=== PATIENT | female | born 1975 | race Caucasian/White ===

== ENCOUNTER 2017-08-07 21:10 | Emergency (ER) | payer BC ==
[2017-08-07] MEDS ORDERED: FAMOTIDINE 20 MG/50 ML IVPB 50 ML IVPB ONE ×2 (21:50→22:16)
[2017-08-07] MEDS ORDERED: SODIUM CHLORIDE 1,000 ML IV ONE (21:50)
[2017-08-07] MEDS ORDERED: ACETAMINOPHEN 1000 MG/100 ML VIAL (NON FORMULARY) IVPB ONE (21:51)
--- NOTE | 2017-08-07 21:52 | PDOC ---
History of Present Illness - General Chief Complaint: Weakness Stated Complaint: WEAKNESS,NAUSEA,HEADACHE S/P COLONOSCOPY Time Seen by Provider: 08/07/17 21:15 History Source: Patient Exam Limitations: No Limitations - History of Present Illness Initial Comments: 08/07/17 22:31 This is a 42-year-old female who comes in complaining of epigastric pain weakness nausea and headache post-colonoscopy. Patient denies any vomiting or diarrhea since the colonoscopy. Here in the emergency room patient appears to be somewhat medicated with slurred speech and falling asleep during the interview. When patient wakes up she says she is in pain and keeps asking for narcotics for her pain. Patient had a colonoscopy at approximately 11:00 this morning and said she got home about 1:00 this afternoon. Since then patient said she has been having the pain and came in for evaluation. Patient denies any rectal bleeding or dark or tarry stools since the colonoscopy. Patient said that they told her she had some hemorrhoids but did not remove any polyps. Patient denies any fevers, chills, cough, chest pain. PAST MEDICAL HISTORY: no significant history PAST SURGICAL HISTORY: no significant history FAMILY HISTORY: no pertinant history SOCIAL HISTORY: Pt lives with family and is employed. MEDICATIONS: reviewed ALLERGIES: As per nursing notes Review of Systems General: No fevers or chills, no weakness, no weight loss HEENT: No change in vision. No sore throat,. No ear pain CardioVascular: No chest pain or shortness of breath Respiratory:No cough, or wheezing. Gastrointestinal: + nausea, vomitting, chronic diarrhea no constipation, No rectal bleeding Genitourinary: No dysuria, hematuria, or frequency Musculoskeletal: No joint or muscle pain or swelling Neurologic: + headache, vertigo, dizziness or loss of consciousness Psychiatric: nor depression Skin: No rashes or easy bruising Endocrine: no increased thirst or abnormal weight change Allergic: no skin or latex allergy All other systems reviewed and normal Exam: General: Well-nourished well-developed individual, no acute distress, patient appears overmedicated HEENT: Throat: Normal, tonsils normal, no erythema or exudate Neck: Supple, no meningeal signs, no lymphadenopathy Eyes::Pupils equal reactive and round, extraocular motion intact Chest: Nontender to palpation Cardiac: S1-S2 normal, regular rate and rhythm, no murmurs rubs or gallops Respiratory: Lungs clear to auscultation bilateral Abdomen: Soft, nondistended, normal bowel sounds, mildly tender to palpation epigastric, no guarding or rebound Extremities: Warm, dry, no cyanosis, clubbing, or edema Skin: No rashes Neuro: Alert and oriented x3, nonfocal exam, grossly intact, normal gait Psych: Normal mood and affect Assessment and plan: This is a 42-year-old female who comes in complaining of nausea and abdominal pain and feeling poorly after colonoscopy. Here in the emergency room patient appears to be overmedicated and continually is asking for narcotic pain medication. On review of patient's narcotic prescription registry patient did have a prescription for Percocet that was filled approximately 2 weeks ago. Because patient appeared to be overmedicated here in the emergency room I did not give her any opioids. I went in to reevaluate her on several occasions each time she was sleeping comfortably but arousable on arousing she complained of pain and requested opioid medication. Patient workup showed a normal white count and normal differential, there was no significant abnormalities of her chemistries. Patient was hydrated with a liter of fluid given some Pepcid and some IV Tylenol.. Patient was reassured that her symptoms would improve with time and that she should go home and get some rest and follow-up with her GI doctor in the morning. Past History - Past Medical History Allergies/Adverse Reactions: Allergies Allergy/AdvReac Type Severity Reaction Status Date / Time Penicillins Allergy Verified 08/07/17 21:12 Home Medications: Ambulatory Orders Ergocalciferol (Vitamin D2) [Vitamin D2] 50,000 units PO WEEKLY 07/22/16 Lisinopril/Hydrochlorothiazide [Lisinopril-Hctz 10-12.5 mg Tab] 1 each PO DAILY 07/22/16 Ondansetron [Zofran Odt -] 4 mg SL TID #21 od.tablet 07/22/16 Diabetes: Yes HTN: Yes - Suicide/Smoking/Psychosocial Hx Smoking History: Current some day smoker Have you smoked in the past 12 months: Yes Number of Cigarettes Smoked Daily: 1 'Breaking Loose' booklet given: 07/22/16 ED Treatment Course - LABORATORY CBC & Chemistry Diagram: 08/07/17 22:00 08/07/17 22:00 *DC/Admit/Observation/Transfer Diagnosis at time of Disposition: Abdominal pain Qualifiers: Abdominal location: epigastric Qualified Code(s): R10.13 - Epigastric pain - Discharge Dispostion Disposition: HOME Condition at time of disposition: Good Admit: No - Patient Instructions Additional Instructions: Go home, rest and all your GI doctor in the morning if you're not feeling better Continue any medications as previously prescribed by your physician. You should follow up with your primary doctor as soon as possible regarding today's emergency department visit. . Please make sure your doctor reviews the results of your emergency evaluation. Thank you for coming to the Emergency Department today for your care. It was a pleasure to see you today. Please note that your evaluation is INCOMPLETE until you follow-up with your doctor.
[2017-08-07] MEDS ORDERED: ACETAMINOPHEN INJECTION 100 ML IVPB ONE (22:16)
[2017-08-07 22:28] LABS: BASOPHIL 1.3 % (0-2.0); EOSINOPHIL 6.1 % (0-4.5); MCH 30.8 pg (25.7-33.7); MCHC 33.8 g/dl (32.0-36.0); MEAN CELL VOLUME 91.2 fl (80-96); NEUTROPHILS 61.1 % (42.8-82.8); PLATELET COUNT 203 K/MM3 (134-434); RDW 12.5 % (11.6-15.6); WHITE BLOOD COUNT 7.6 K/mm3 (4.0-10.8)
[2017-08-07 22:46] LABS: ALBUMIN 3.6 g/dl (3.5-5.0); ALK PHOS 90 U/L (32-92); ANION GAP 0 (8-16); BILIRUBIN,TOTAL 0.5 mg/dl (0.2-1.0); CALCIUM 8.5 mg/dl (8.4-10.2); CO2 25 mmol/L (22-28); CREATININE 0.6 mg/dl (0.6-1.3); GLUCOSE,RANDOM 81 mg/dl (74-106); SGOT/AST 22 U/L (10-42); SGPT/ALT 21 U/L (10-40); TOT PROT 6.2 g/dl (6.4-8.3)
[2017-08-08 00:11] VITALS: BP 123/87; PULSE 80; TEMP 98.8; BMI 31.6
== END 2017-08-07 23:40 | disposition home or self-care (01) ==
LOC: FER 21:10
PROC: 3E033NZ Introduction of Analgesics, Hypnotics, Sedatives into Peripheral Vein, Percutaneous Approach (ICD-10-PCS; principal; 2017-08-07)
PROC: 3E033GC Introduction of Other Therapeutic Substance into Peripheral Vein, Percutaneous Approach (ICD-10-PCS; 2017-08-07)
PROC: 3E0337Z Introduction of Electrolytic and Water Balance Substance into Peripheral Vein, Percutaneous Approach (ICD-10-PCS; 2017-08-07)
DX: R10.13 Epigastric pain (principal); F17.210 Nicotine dependence, cigarettes, uncomplicated; E11.9 Type 2 diabetes mellitus without complications; I10 Essential (primary) hypertension
CPT/HCPCS: 36415; 80053; 83690; 85025; 99283-25

== ENCOUNTER 2017-10-18 17:40 | Emergency (ER) | payer BC ==
[2017-10-18 17:52] VITALS: BP 119/79; PULSE 80; TEMP 99; BMI 31.1
[2017-10-18] MEDS ORDERED: SODIUM CHLORIDE 1,000 ML IV STA (17:54)
[2017-10-18] MEDS ORDERED: ACETAMINOPHEN 1000 MG/100 ML VIAL (NON FORMULARY) IVPB ONE (17:54)
[2017-10-18] MEDS ORDERED: METOCLOPRAMIDE HCL INJECTION 10 MG/2 ML VIAL IVPUSH ONE (17:54)
[2017-10-18] MEDS ORDERED: PROCHLORPERAZINE INJECTION 10 MG/2 ML VIAL IVPB ONE (18:08)
--- NOTE | 2017-10-18 18:18 | PDOC ---
History of Present Illness - General History Source: Patient Exam Limitations: No Limitations - History of Present Illness Initial Comments: 10/18/17 18:32 The patient is a 42-year-old female, with a significant past medical history of , who presents to the ED with 4 days of a migraine. Pt was prescribed imitrex; last dose was 3 days ago. Pt was unable to refill her prescription due to insurance issues. She is experiencing the pain to her temples bilaterally. Pt states that the pain is constant and is accompanied by eye puffiness, photophobia, loss of appetite, nausea, and vomiting. She denies any fever or chills. She denies having any other symptoms. Allergies: Penicillin (Pt develops hives). <Laura Blanco - Last Filed: 10/18/17 18:31> - General History Source: Patient Exam Limitations: No Limitations <Richardson Rdz - Last Filed: 10/18/17 18:51> <Alessandra Lee - Last Filed: 10/19/17 05:42> - General Chief Complaint: Headache Stated Complaint: HEADACHE Time Seen by Provider: 10/18/17 17:46 Past History <Laura Blanco - Last Filed: 10/18/17 18:31> - Past Medical History COPD: No Diabetes: Yes HTN: Yes Other medical history: MIGRAINE HEADACHES - Surgical History GI Surgery: Yes (GASTRIC BYPASS 09/2016) - Suicide/Smoking/Psychosocial Hx Smoking History: Current every day smoker Have you smoked in the past 12 months: Yes Number of Cigarettes Smoked Daily: 3 Information on smoking cessation initiated: Yes 'Breaking Loose' booklet given: 10/18/17 Hx Alcohol Use: No Drug/Substance Use Hx: No Substance Use Type: None <Rihcardson Rdz - Last Filed: 10/18/17 18:51> <Alessandra Lee - Last Filed: 10/19/17 05:42> - Past Medical History Allergies/Adverse Reactions: Allergies Allergy/AdvReac Type Severity Reaction Status Date / Time Penicillins Allergy Verified 10/18/17 17:45 metoclopramide HCl AdvReac hallucinati Verified 10/18/17 18:11 [From [facility]] ons Home Medications: Ambulatory Orders Ergocalciferol (Vitamin D2) [Vitamin D2] 50,000 units PO WEEKLY 07/22/16 Lisinopril/Hydrochlorothiazide [Lisinopril-Hctz 10-12.5 mg Tab] 1 each PO DAILY 07/22/16 Acetaminophen/Caffeine/Butalb [Fioricet -] 1 tab PO Q6H PRN #12 tablet MDD 3 tabs 10/18/17 Calcium Carbonate [Calcium] 500 mg PO ASDIR 10/18/17 Ferrous Sulfate, Dried [Iron] mg PO DAILY 10/18/17 Sumatriptan Succinate [Imitrex] 50 mg PO ASDIR 10/18/17 Review of Systems - Review of Systems Able to Perform ROS?: Yes Comments:: 10/18/17 18:32 GENERAL/CONSTITUTIONAL: (+)Loss of appetite. No fever or chills. No weakness. HEAD, EYES, EARS, NOSE AND THROAT: (+)Photophobia. No ear pain or discharge. No sore throat. CARDIOVASCULAR: No chest pain or shortness of breath. RESPIRATORY: No cough, wheezing, or hemoptysis. SKIN: No rash GASTROINTESTINAL: (+)nausea, vomiting. No diarrhea or constipation. GENITOURINARY: No dysuria, frequency, or change in urination. MUSCULOSKELETAL: No joint or muscle swelling or pain. No neck or back pain. NEUROLOGIC: (+)migraine. No vertigo, loss of consciousness, or change in strength/sensation. ENDOCRINE: No increased thirst. No abnormal weight change. HEMATOLOGIC/LYMPHATIC: No anemia, easy bleeding, or history of blood clots. ALLERGIC/IMMUNOLOGIC: No hives or skin allergy. <Laura Blanco - Last Filed: 10/18/17 18:31> *Physical Exam - Vital Signs Last Vital Signs Temp Pulse Resp BP Pulse Ox 99 F 80 16 119/79 100 10/18/17 17:40 10/18/17 17:40 10/18/17 17:40 10/18/17 17:40 10/18/17 17:40 - Physical Exam Comments: 10/18/17 18:41 GENERAL: Awake, alert, and fully oriented, in no acute distress HEAD: No signs of trauma ENT: Auricles normal inspection, hearing grossly normal, nares patent, oropharynx clear EYES: PERRLA, EOMI, sclera anicteric, conjunctiva clear without exudates. Moist mucosa. NECK: Normal ROM, supple, no lymphadenopathy, JVD, or masses LUNGS: Breath sounds equal, clear to auscultation bilaterally. No wheezes, and no crackles HEART: Regular rate and rhythm, normal S1 and S2, no murmurs, rubs or gallops ABDOMEN: Soft, nontender, normoactive bowel sounds. No guarding, no rebound. No masses EXTREMITIES: Normal range of motion, no edema. No clubbing or cyanosis. No cords, erythema, or tenderness NEUROLOGICAL: Cranial nerves II through XII intact. 5/5 strength. Sensation intact. No pronator drift. Speech normal. Gait normal. SKIN: Warm, Dry, normal turgor, no rashes or lesions noted <Laura Blanco - Last Filed: 10/18/17 18:31> - Vital Signs Last Vital Signs Temp Pulse Resp BP Pulse Ox 99 F 80 16 119/79 100 10/18/17 17:40 10/18/17 17:40 10/18/17 17:40 10/18/17 17:40 10/18/17 17:40 <Richardson Rdz - Last Filed: 10/18/17 18:51> - Vital Signs Last Vital Signs Temp Pulse Resp BP Pulse Ox 99 F 80 16 119/79 100 10/18/17 17:40 10/18/17 17:40 10/18/17 17:40 10/18/17 17:40 10/18/17 17:40 <Alessandra Lee - Last Filed: 10/19/17 05:42> ED Treatment Course - Medications Given in the ED: ED Medications Discontinued Medications Generic Name Dose Route Start Last Admin Trade Name Freq PRN Reason Stop Dose Admin Acetaminophen 1,000 mg 10/18/17 17:54 10/18/17 18:10 Ofirmev Injection - IVPB 10/18/17 17:55 1,000 mg ONCE ONE Administration Diphenhydramine HCl 25 mg 10/18/17 17:54 10/18/17 18:05 Benadryl Injection - IVPB 10/18/17 17:55 25 mg ONCE ONE Administration <Laura Blanco - Last Filed: 10/18/17 18:31> - Medications Given in the ED: ED Medications Discontinued Medications Generic Name Dose Route Start Last Admin Trade Name Freq PRN Reason Stop Dose Admin Acetaminophen 1,000 mg 10/18/17 17:54 10/18/17 18:10 Ofirmev Injection - IVPB 10/18/17 17:55 1,000 mg ONCE ONE Administration Diphenhydramine HCl 25 mg 10/18/17 17:54 10/18/17 18:05 Benadryl Injection - IVPB 10/18/17 17:55 25 mg ONCE ONE Administration <Richardson Rdz - Last Filed: 10/18/17 18:51> - Medications Given in the ED: ED Medications Discontinued Medications Generic Name Dose Route Start Last Admin Trade Name Aurelia PRN Reason Stop Dose Admin Acetaminophen 1,000 mg 10/18/17 17:54 10/18/17 18:10 Ofirmev Injection - IVPB 10/18/17 17:55 1,000 mg ONCE ONE Administration Acetaminophen/Butalbital/Caffeine 1 tablet 10/18/17 18:58 10/18/17 19:15 Fioricet - PO 10/18/17 18:59 1 tablet ONCE ONE Administration Diphenhydramine HCl 25 mg 10/18/17 17:54 10/18/17 18:05 Benadryl Injection - IVPB 10/18/17 17:55 25 mg ONCE ONE Administration Sodium Chloride 1,000 mls @ 1,000 mls/hr 10/18/17 17:54 10/18/17 18:00 Normal Saline - IV 10/18/17 18:53 1,000 mls/hr ASDIR STA Administration Metoclopramide HCl 10 mg 10/18/17 17:54 10/18/17 19:16 Reglan Injection - IVPUSH 10/18/17 17:55 Not Given ONCE ONE Prochlorperazine Edisylate 10 mg 10/18/17 18:08 10/18/17 18:50 Compazine Injection - IVPB 10/18/17 18:09 10 mg ONCE ONE Administration <Alessandra Lee - Last Filed: 10/19/17 05:42> Medical Decision Making - Medical Decision Making 10/18/17 18:12 A portion of this note was documented by scribe services under my direction. I have reviewed the details of the note, within reason, and agree with the documentation with the following case summary and management plan written by me. Patient treated in the ED. Nursing notes are reviewed and incorporated into the medical decision-making. Vital signs reviewed. Vital Signs Temp Pulse Resp BP Pulse Ox 99 F 80 16 119/79 100 10/18/17 17:40 10/18/17 17:40 10/18/17 17:40 10/18/17 17:40 10/18/17 17:40 42-year-old female with history of migraines presents emergency Department with a migraine attack. Patient reports a constant throbbing global headache for 4 days associated photophobia and phonophobia. Denies fevers or chills or neck pain. Patient reports that she is taking her Imitrex. However, she attempted to refill her Imitrex but the insurance rejected her refills. Patient's symptoms are consistent with her migraines. Patient reports that she has thought she may potentially have had an ALLERGIC reaction to Reglan. We'll trial other migraine medications and reassess. 10/18/17 18:51 [facility] Lee for further management and disposition. <Richardson Rdz - Last Filed: 10/18/17 18:51> - Medical Decision Making Patient feels no further headache after Fioricet. Patient discharged with prescription for Fioricet (#12) to be used up to 3 tabs a day as needed for headache. She has follow-up appointment with her neurologist next week. If she has any persistent severe headache in the interim , she should return to the emergency room. <Alessandra Lee - Last Filed: 10/19/17 05:42> *DC/Admit/Observation/Transfer - Attestations Scribe Attestion: 10/18/17 18:44 Documentation prepared by Laura Blanco, acting as medical chemist for Richardson Rdz MD. <Laura Blanco - Last Filed: 10/18/17 18:31> <Richardson Rdz - Last Filed: 10/18/17 18:51> <Alessandra Lee - Last Filed: 10/19/17 05:42> Diagnosis at time of Disposition: Migraine Qualifiers: Migraine type: unspecified Status migrainosus presence: without status migrainosus Intractability: not intractable Qualified Code(s): G43.909 - Migraine, unspecified, not intractable, without status migrainosus - Discharge Dispostion Disposition: HOME Condition at time of disposition: Stable - Prescriptions Prescriptions: Acetaminophen/Caffeine/Butalb [Fioricet -] 1 tab PO Q6H PRN #12 tablet MDD 3 tabs PRN Reason: Headache - Referrals Referrals: Julienne French MD [Primary Care Provider] - - Patient Instructions Printed Discharge Instructions: Migraine -- Adult Additional Instructions: Fioricet 1 tablet every 6 hours as needed for headache up to 3 times a day Rest; drink plenty fluids Follow-up with your neurologist within the next 5 days Return to ER if you have persistent severe headache - Post Discharge Activity
[2017-10-18] MEDS ORDERED: ACETAMINOPHEN/CAFFEINE/BUTALBITAL 1 TAB PO ONE (18:58)
[2017-10-18] MEDS ORDERED: ACETAMINOPHEN/CAFFEINE/BUTALBITAL 1 TAB ONE (19:14)
== END 2017-10-18 20:56 | disposition home or self-care (01) ==
LOC: FER 17:40
PROC: 3E033NZ Introduction of Analgesics, Hypnotics, Sedatives into Peripheral Vein, Percutaneous Approach (ICD-10-PCS; principal; 2017-10-18)
PROC: 3E033GC Introduction of Other Therapeutic Substance into Peripheral Vein, Percutaneous Approach (ICD-10-PCS; 2017-10-18)
PROC: 3E0337Z Introduction of Electrolytic and Water Balance Substance into Peripheral Vein, Percutaneous Approach (ICD-10-PCS; 2017-10-18)
DX: G43.909 Migraine, unspecified, not intractable, without status migrainosus (principal)
CPT/HCPCS: 99282-25

== ENCOUNTER 2018-06-05 15:59 | Emergency (ER) | payer BC ==
[2018-06-05 16:17] VITALS: TEMP 98.3; BMI 24.9
--- NOTE | 2018-06-05 16:40 | PDOC ---
History of Present Illness - General Chief Complaint: Migraine Headache Stated Complaint: MIGRAINE Time Seen by Provider: 06/05/18 16:39 - History of Present Illness Initial Comments: 06/05/18 16:49 43 yo F w a hx of anemia, PUD, Gastric bypass, HTN, and bradycardia is here with a left sided pounding pulsatile headache which she says feels like her typical migraine. She has had the migraine for the past week. She rates the pain as 10/10 and she came to the ER bc she couldn't bare the pain and wanted some meds for it. She endorses blurry vision, nausea but no emesis, photophobia , and phonophobia. She says this is not the worst headache of her life. She was taking immitrex months back but stopped bc of her HTN. She was also taking propranolol as a migraine prophylactic but stopped bc of her bradycardia. She is not allowed to take NSAIDs bc of her ulcer. She also gets a bad reaction to reglan. She denies any recent fevers or neck rigidity. Denies any weakness, or sensory changes. 06/05/18 16:50 Past History - Past Medical History Allergies/Adverse Reactions: Allergies Allergy/AdvReac Type Severity Reaction Status Date / Time Penicillins Allergy Intermediate Difficulty Verified 06/05/18 16:00 Breathing metoclopramide HCl AdvReac hallucinati Verified 06/05/18 16:00 [From Reglan] ons Home Medications: Ambulatory Orders Ergocalciferol (Vitamin D2) [Vitamin D2] 50,000 units PO WEEKLY 07/22/16 Calcium Carbonate [Calcium] 500 mg PO ASDIR 10/18/17 Cyclobenzaprine HCl 10 mg PO PRN #10 tablet 06/05/18 Lisinopril 10 mg PO DAILY 06/05/18 Pantoprazole Sodium [Protonix -] 20 mg PO BID 06/05/18 COPD: No Diabetes: No HTN: Yes Other medical history: ULCER - Surgical History GI Surgery: Yes (GASTRIC BYPASS 09/2016, BOWEL OBSTRUCTION) - Suicide/Smoking/Psychosocial Hx Smoking History: Current every day smoker Have you smoked in the past 12 months: Yes Number of Cigarettes Smoked Daily: 1 Information on smoking cessation initiated: Yes 'Breaking Loose' booklet given: 06/05/18 Hx Alcohol Use: No Drug/Substance Use Hx: No Substance Use Type: None Review of Systems - Review of Systems Comments:: 06/05/18 16:55 NEUROLOGIC: Positive: Headache Absent: focal weakness or paresthesias, dizziness, unsteady gait, seizure, mental status changes, bladder or bowel incontinence CONSTITUTIONAL: Positive: Generalized weakness, malaise. Absent: fever, chills, diaphoresis, loss of appetite HEENT: Absent: rhinorrhea, nasal congestion, throat pain, throat swelling, difficulty swallowing, mouth swelling, ear pain, eye pain, visual Changes CARDIOVASCULAR: Absent: chest pain, syncope, palpitations, irregular heart rate, lightheadedness , peripheral edema RESPIRATORY: Absent: cough, shortness of breath, dyspnea with exertion, orthopnea, wheezing, stridor, hemoptysis GASTROINTESTINAL: Positive: Nausea Absent: abdominal pain, abdominal distension, vomiting, diarrhea, constipation, melena, hematochezia GENITOURINARY: Absent: dysuria, frequency, urgency, hesitancy, hematuria, flank pain, genital pain MUSCULOSKELETAL: Positive: Myalgia Absent: arthralgia, joint swelling SKIN: Absent: rash, itching, pallor HEMATOLOGIC/IMMUNOLOGIC: Absent: easy bleeding, easy bruising, lymphadenopathy, frequent infections ENDOCRINE: Absent: unexplained weight gain, unexplained weight loss, heat intolerance, cold intolerance PSYCHIATRIC: Absent: anxiety, depression, suicidal or homicidal ideation, hallucinations. *Physical Exam - Vital Signs Last Vital Signs Temp Pulse Resp BP Pulse Ox 98.3 F 57 L 16 149/89 100 06/05/18 16:00 06/05/18 16:00 06/05/18 16:00 06/05/18 16:00 06/05/18 16:00 - Physical Exam Comments: 06/05/18 16:58 GENERAL: Patient is in distress bc of her headache. She is well developed, well nourished , awake and alert. HEENT: Normocephalic, atraumatic. PERRLA, EOMI. No conjunctival pallor. Sclera are non- icteric. Moist mucous membranes. Oropharynx is clear. NECK: Supple. Full ROM. No JVD. Carotid pulses 2+ and symmetric, without bruits. No lymphadenopathy. CARDIOVASCULAR: Regular rate and rhythm. No murmurs, rubs, or gallops. Distal pulses are 2+ and symmetric. PULMONARY: No evidence of respiratory distress. Lungs clear to auscultation bilaterally. No wheezing, rales or rhonchi. ABDOMINAL: Soft. Non-tender. Non-distended. No rebound or guarding. No organomegaly. Normoactive bowel sounds. MUSCULOSKELETAL Normal range of motion at all joints. No bony deformities or tenderness. No CVA tenderness. EXTREMITIES: No cyanosis. No clubbing. No edema. No calf tenderness. SKIN: Warm and dry. Normal capillary refill. No rashes. No jaundice. NEUROLOGICAL: Alert, awake, appropriate. Cranial nerves 2-12 intact. No deficits to light touch and temperature in face, upper extremities and lower extremities. No motor deficits in the in face, upper extremities and lower extremities. Normoreflexic in the upper and lower extremities. Normal speech. Gait is normal without ataxia. PSYCHIATRIC: Cooperative. Good eye contact. Appropriate mood and affect. Medical Decision Making - Medical Decision Making 06/05/18 16:59 43 yo F w a hx of migraines, PUD, gastric bypass, HTN, and bradycardia here bc of what appears to be a migraine which she has had for the past week. The pain has stayed the same but she has not taken meds for it bc she is not allowed to take NSAIDs bc of her ulcer, reglan bc she gets bad reactions, sumatriptan bc she has high BP, and propranolol bc she has bradycardia. She has not had any recent fevers or infections. Negative kernig and brudinsky. No nuchal rigidity. She denies this headache being the worst headache of her life and says the headache came on suddenly not abruptly. Plan: liter of saline, tylenol, prochlorperazine, benadryl, lidoderm patch, re- assess. Re-assessment: After migraine meds she feels better. 06/05/18 17:39 06/05/18 18:48 *DC/Admit/Observation/Transfer Diagnosis at time of Disposition: Migraine - Discharge Dispostion Disposition: HOME Condition at time of disposition: Stable Decision to Admit order: No - Prescriptions Prescriptions: Cyclobenzaprine HCl 10 mg PO PRN #10 tablet - Referrals - Patient Instructions Printed Discharge Instructions: DI for Moderate Sedation Additional Instructions: You came to the ER with a migraine headache. We gave you some medications to help soothe the Migraine. Please make sure to follow up with you primary care doc in the next 7 to 10 days to make sure the migraine has gone away and you are getting better. Come back to the Emergency room immediately if your headache gets much worse, you develop a bad fever, or other concerning symptoms arise. - Post Discharge Activity
[2018-06-05] MEDS ORDERED: ACETAMINOPHEN 1000 MG/100 ML VIAL (NON FORMULARY) IVPB ONE (16:41)
[2018-06-05] MEDS ORDERED: SODIUM CHLORIDE 0.9% 500 ML INFUS.BAG IV ONE (16:41)
[2018-06-05] MEDS ORDERED: PROCHLORPERAZINE INJECTION 10 MG/2 ML VIAL IVPB ONE (16:41)
[2018-06-05] MEDS ORDERED: diphenhydrAMINE HCL 25 MG CAPSULE (FP) PO ONE (16:42)
[2018-06-05] MEDS ORDERED: diphenhydrAMINE HCL 50 MG CAPSULE ONE (16:53)
[2018-06-05] MEDS ORDERED: ACETAMINOPHEN INJECTION 100 ML IVPB ONE (16:53)
[2018-06-05] MEDS ORDERED: PROCHLORPERAZINE INJECTION 10 MG/2 ML VIAL ONE (16:53)
[2018-06-05] MEDS ORDERED: LIDOCAINE 5% TOPICAL PATCH TP ONE (17:27)
--- NOTE | 2018-06-05 18:20 | PDOC ---
Attending Attestation - HPI HPI: 06/05/18 18:22 Rach 43 YOF with h/o htn, migraines and gastric bypass presenting with migraine headache x 1 week; saw PCP earlier today w/o intervention. She ranks her headache as a 10/10 yet, not the worst of her life. She reports associated photophobia, phonophobia, minimal blurred vision, nausea without emesis, and neck cervicalgia radiating down to her left shoulder. She denies any neck stiffness. Her headache is currently localized to the left occipital and temporal region. She has not taken anything for her migraine. She states her migraine is triggered by high stress. She was prescribed Sumatriptan and Propranolol in the past, however, stopped taking them due to ill side effects. She denies any recent fever, chills, or vomiting. She denies any recent chest pain or shortness of breath. She denies any recent urinary or bowel symptoms. ROS is positive for headache, photophobia, phonophobia, minimal blurred vision, and neck cervicalgia . Allergies: Penicillins, Metoclopramide HCl Past surgical history: Gastric bypass and tubal ligation. Social history: Nonsmoker. Denies EtOH use and recreational drug use. - Physicial Exam PE: 06/05/18 18:22 General: Well appearing, awake and alert, NAD. HEENT: NCAT, PERRL, EOMI, clear conjunctiva, anicteric, moist mucus membranes, clear oropharynx Neck: neck supple, FROM; +left trapezius and lateral cervical spine and occipital groove TTP, no midline tenderness; no meningeal signs Resp: CTAB, normal and even respirations, no respiratory distress CVS: RRR, 2+ peripheral pulses throughout, no peripheral edema Abdomen: soft, NTND Back: normal inspection and ROM; lateral left sided thoracic TTP, no midline tenderness MSK: no edema, RAINEY x4, ROM intact. normal bulk and tone. Neuro: alert, oriented appropriately; no focal neurologic deficits. SILT, 5/5 distal and prox strength in all extrem. CN II-XII intact. Gait stable. Skin: warm and well perfused, cap refill <2 sec, normal color; no rash <Chrissy Macdonald - Last Filed: 06/05/18 18:22> - Resident Resident Name: Gerardo Hendricks - ED Attending Attestation I have performed the following: I have examined & evaluated the patient, The case was reviewed & discussed with the resident, I agree w/resident's findings & plan - Medical Decision Making 06/05/18 17:42 A portion of this note was documented by scribe services under my direction. I have reviewed the details of the note, within reason, and agree with the documentation with the following case summary and management plan written by me. MDM: Rach 43 YOF with h/o migraines and gastric bypass presenting with migraine headache x 1 week; saw PCP earlier today w/o intervention. +blurry vision, photosensitivity. +left occipital/temperal headache, neck cramping. No fevers or chills. Previously on sumitraptan and propanalol, fiorcet- stopped taking due to side effects and has not resumed meds. Planning to call for neurologist appt next week for appointment. DDx. cluster hernandez, migraine, tension hernandez, cervicalgia, occipital HERNANDEZ, trapzeius strain, thoracic strain; clinically doubt meningitis or NUTRITION REPRESENTATIVE infection as no fevers AMS or neuro deficits; doubt infection or intracranial process. clinically doubt emergent pathology Vital signs stable, afebrile. Interventions: IVF, lidoderm patch for neck, compazine/PO benadryl. clinical reassessment after treatment, feels improved, HERNANDEZ down from 10 -> 5. no neuro deficits, able to ambulate, tolerating PO stress relief, supportive care. PRN tylenol, rx flexeril for muscle spasms PRN. discharge in stable condition, return precautions discussed. PCP/Neurology outpatient followup, which pt verbalizes she plans to do 06/05/18 18:47 <Lima Oconnor - Last Filed: 06/05/18 18:47> Attestations - Attestations 06/05/18 18:22 Documentation prepared by Chrissy Macdonald, acting as bio medical technician for Lima Oconnor MD. <Chrissy Macdonald - Last Filed: 06/05/18 18:22>
[2018-06-05 19:03] VITALS: BP 108/72; PULSE 52
[2018-06-05] MEDS ORDERED: LIDOCAINE PATCH REMOVAL MC SCH (22:00)
== END 2018-06-05 19:03 | disposition home or self-care (01) ==
LOC: FER 15:59
PROC: 3E033NZ Introduction of Analgesics, Hypnotics, Sedatives into Peripheral Vein, Percutaneous Approach (ICD-10-PCS; principal; 2018-06-05)
PROC: 3E033GC Introduction of Other Therapeutic Substance into Peripheral Vein, Percutaneous Approach (ICD-10-PCS; 2018-06-05)
PROC: 3E0337Z Introduction of Electrolytic and Water Balance Substance into Peripheral Vein, Percutaneous Approach (ICD-10-PCS; 2018-06-05)
DX: H53.149 Visual discomfort, unspecified (principal); G43.909 Migraine, unspecified, not intractable, without status migrainosus; I10 Essential (primary) hypertension; Z98.84 Bariatric surgery status; R00.1 Bradycardia, unspecified; K27.9 Peptic ulcer, site unspecified, unspecified as acute or chronic, without hemorrhage or perforation
CPT/HCPCS: 99282-25; J0131

== ENCOUNTER 2019-12-16 09:34 | Emergency (ER) | payer BC ==
[2019-12-16 09:48] VITALS: BMI 21.9
--- NOTE | 2019-12-16 10:07 | PDOC ---
History of Present Illness - General Chief Complaint: Injury Stated Complaint: FALL Time Seen by Provider: 12/16/19 10:03 - History of Present Illness Initial Comments: 12/16/19 13:21 44y/o f hx of gastric bypass surgery anemia,HTN presenting after falling down 12 stairs, and hitting her head and body on the right side. able to ambulate after fall with no LOC after event pt denies chest pain, shortness of breath, numbness, tingling on affected side, nausea ,vomiting. 01/09/20 14:23 Past History - Past Medical History Allergies/Adverse Reactions: Allergies Allergy/AdvReac Type Severity Reaction Status Date / Time Penicillins Allergy Intermediate Difficulty Verified 12/16/19 09:44 Breathing metoclopramide HCl AdvReac hallucinati Verified 12/16/19 09:44 [From [facility]] ons Home Medications: Ambulatory Orders Lisinopril 10 mg PO DAILY 06/05/18 Anemia: Yes (iron injections wkly) COPD: No Diabetes: No HTN: Yes - Surgical History GI Surgery: Yes (GASTRIC BYPASS 09/2016, BOWEL OBSTRUCTION) - Immunization History Immunization Up to Date: No - Psycho Social/Smoking Cessation Hx Smoking History: Unknown if ever smoked Have you smoked in the past 12 months: Yes Number of Cigarettes Smoked Daily: 1 'Breaking Loose' booklet given: 06/05/18 Hx Alcohol Use: No Drug/Substance Use Hx: No Substance Use Type: None Review of Systems - Review of Systems Constitutional: No: Chills, Fever HEENTM: No: Blurred Vision Respiratory: No: Cough, Shortness of Breath Cardiac (ROS): No: Chest Pain ABD/GI: No: Nausea, Vomiting : No: Burning, Hematuria Musculoskeletal: No: Joint Stiffness Neurological: No: Numbness, Tingling *Physical Exam - Vital Signs Last Vital Signs Temp Pulse Resp BP Pulse Ox 98.1 F 84 16 139/73 99 12/16/19 09:44 12/16/19 09:44 12/16/19 09:44 12/16/19 09:44 12/16/19 09:44 - Physical Exam 12/16/19 11:06 GENERAL: Awake, alert, and fully oriented, in no acute distress HEAD: No signs of trauma, normocephalic, atraumatic EYES: EOMI, sclera anicteric, conjunctiva clear ENT: Auricles normal inspection, hearing grossly normal,no hemotympanum nares patent, oropharynx clear without exudates. Moist mucosa NECK: Normal ROM, supple, no lymphadenopathy, JVD, or masses LUNGS: No distress, speaks full sentences, clear to auscultation bilaterally HEART: Regular rate and rhythm, normal S1 and S2, no murmurs, rubs or gallops, peripheral pulses normal and equal bilaterally. ABDOMEN: Soft, nontender, normoactive bowel sounds. No guarding, no rebound. No masses EXTREMITIES : Normal inspection, Normal range of motion.tenderness of right lateral thigh with swelling. NEUROLOGICAL: Cranial nerves II through XII grossly intact. Normal speech, normal gait, no focal sensorimotor deficits SKIN: Warm, Dry, normal turgor, no rashes or lesions noted 12/16/19 11:07 ED Treatment Course - LABORATORY CBC & Chemistry Diagram: 12/16/19 11:00 12/16/19 11:00 Medical Decision Making - Medical Decision Making 12/16/19 13:52 44 y/o F right femur x-ray: no acute pathology 12/16/19 15:[address]: no acute intracranial pathology -Pt reassesed, still complaining of pain after tylenol will give lidocaine patch. Other imaging pending. 12/16/19 16:[address] shows heterogenous spleen, per cT report could be contusions. pt did not have any abdominal pain or LUQ pain specifically Discharge - Discharge Information Problems reviewed: Yes Clinical Impression/Diagnosis: Fall (on) (from) other stairs and steps, initial encounter Leg pain Qualifiers: Laterality: right Qualified Code(s): M79.604 - Pain in right leg Condition: Stable Disposition: HOME - Follow up/Referral Referrals: Julienne French MD [Primary Care Provider] - - Patient Discharge Instructions Patient Printed Discharge Instructions: DI for Leg Pain Additional Instructions: You sere seen in the ER for leg pain your scans and x-ray did not show any fractures. you have been given a copy of your abdomen and pelvis ct, which shows possible bruising of your spleen Follow up with your primary care doctor in the next 2-3 days, take the provided report as you will need repeat imaging to make sure there is no bleeding in your abdomen/spleen. Your care is not complete until you do so RETURN TO THE ER if your pain worsens, you develop fevers, chills or increased swelling of your right leg, and new, worsening, or concerning symptoms - Post Discharge Activity
[2019-12-16] MEDS ORDERED: ACETAMINOPHEN 1000 MG/100 ML VIAL (NON FORMULARY) IVPB ONE (10:50)
[2019-12-16] MEDS ORDERED: ACETAMINOPHEN INJECTION 100 ML IVPB ONE (11:31)
[2019-12-16 12:29] LABS: EOS % 3.7 % (0-4.5); HEMOGLOBIN 10.1 GM/dL (10.7-15.3); LYMPH % 22.9 % (8-40); MCH 31.6 pg (25.7-33.7); MCHC 33.8 g/dl (32.0-36.0); MEAN CELL VOLUME 93.7 fl (80-96); MEAN PLT VOLUME 9.3 fl (7.5-11.1); MONO % 5.8 % (3.8-10.2); NEUT % 66.6 % (42.8-82.8); PLATELET COUNT 192 K/MM3 (134-434); RDW 14.5 % (11.6-15.6); WHITE BLOOD COUNT 5.2 K/mm3 (4.0-10.0)
[2019-12-16 12:55] LABS: ALBUMIN 4.2 g/dl (3.4-5.0); BILIRUBIN,TOTAL 0.3 mg/dL (0.2-1); BLOOD UREA NITROGEN 17.2 mg/dL (7-18); CALCIUM 8.5 mg/dL (8.5-10.1); CREATININE 0.6 mg/dL (0.55-1.3); POTASSIUM 4.3 mmol/L (3.5-5.1); TOT PROT 6.4 g/dl (6.4-8.2)
--- NOTE | 2019-12-16 13:13 | EKG ---
Test Reason : Blood Pressure : / mmHG Vent. Rate : 067 BPM Atrial Rate : 067 BPM P-R Int : 138 ms QRS Dur : 076 ms QT Int : 410 ms P-R-T Axes : 030 025 010 degrees QTc Int : 433 ms NORMAL SINUS RHYTHM NORMAL ECG WHEN COMPARED WITH ECG OF 12-AUG-2017 02:02, NONSPECIFIC T WAVE ABNORMALITY, IMPROVED IN ANTERIOR LEADS Confirmed by MD GISEL, GISSELLE ([id number]) on 12/16/2019 1:13:23 PM Referred By: Confirmed By:GISSELLE BATRES MD
[2019-12-16] MEDS ORDERED: LIDOCAINE 5% TOPICAL PATCH TP ONE (15:13)
[2019-12-16] MEDS ORDERED: LIDOCAINE 5% TOPICAL PATCH ONE ×2 (15:19→15:26)
[2019-12-16 15:46] VITALS: BP 138/98; PULSE 56; TEMP 97.7
--- NOTE | 2019-12-16 17:40 | PDOC ---
Documentation entered by Francisco Serna SCRIBE, acting as scribe for Jose Eduardo Taylor MD. Jose Eduardo Taylor MD: This documentation has been prepared by the Kareem saldana Daniel, SCRIBE, under my direction and personally reviewed by me in its entirety. I confirm that the documentation accurately reflects all work, treatment, procedures, and medical decision making performed by me. Attending Attestation - Resident Resident Name: DanielWaldodmyulissa - ED Attending Attestation I have performed the following: I have examined & evaluated the patient, The case was reviewed & discussed with the resident, I agree w/resident's findings & plan, Exceptions are as noted - HPI HPI: 12/16/19 10:45 The patient is a 44 year old female with a past medical history of anemia, HTN, and gastric bypass (2016) here today for evaluation of fall. The patient reports that she felt room spinning dizziness last night that lasted for a few seconds, resolved, then opened up the door to her basement when she slipped and fell down a full flight of stairs in her house. She states that she landed on her right side and hit her head and neck. She reports pain to her L leg since the fall but reports that she was able to ambulate after the fall and denies any loss of consciousness. Patient notes that since her gastric bypass she has had this intermittent room spinning dizziness for which she has been worked up by a director of home care hospice and neurologist. She states a holter study was reportedly negative and she tried meclizine as she was diagnosed with vertigo but it did not agree with her stomach. At this time, her only compliant is leg pain, no treatments tried. Patient denies headache, focal weakness/numbness, blurry vision. Denies fever, chills. Denies chest pain, shortness of breath. Denies nausea, vomiting, diarrhea, abdominal pain. Allergies: penicillins, metoclopramide HCL - Physicial Exam PE: 12/16/19 10:46 GENERAL: Awake, alert, and fully oriented, in no acute distress HEAD: No signs of trauma EYES: PERRLA, EOMI, sclera anicteric, conjunctiva clear ENT: Auricles normal inspection, hearing grossly normal, nares patent, oropharynx clear without exudates. Moist mucosa NECK: Normal ROM, supple, no lymphadenopathy, JVD, or masses LUNGS: Breath sounds equal, clear to auscultation bilaterally. No wheezes, and no crackles HEART: Regular rate and rhythm, normal S1 and S2, no murmurs, rubs or gallops ABDOMEN: Soft, nontender, normoactive bowel sounds. No guarding, no rebound. No masses EXTREMITIES: +ttp to R proximal lateral leg, but no deformities, bony ttp, bruising. Normal range of motion, no edema. No clubbing or cyanosis. No cords, erythema, or tenderness BACK: No midline spinal tenderness in cervical/thoracic/lumbar region NEUROLOGICAL: Normal speech, cranial nerves intact, 5/5 strength in all 4 extremities, normal sensation to light touch in all 4 extremities, normal cerebellar exam, normal gait SKIN: Warm, Dry, normal turgor, no rashes or lesions noted. - Medical Decision Making 44-year-old female presents to the emergency department with right leg pain after falling down a full flight of stairs last night. Patient reports head strike. In light of the mechanism of the fall, will obtain a full traumatic work-up including CT head, C-spine and CT chest abdomen pelvis with IV contrast. She has no midline spinal tenderness to palpation. We will also obtain a plain film of the femur and pain control and reassess 12/16/19 16:35 Labs within normal limits. CT head and neck unremarkable for trauma. CT chest abdomen pelvis with some heterogeneous appearance of the spleen that could be a normal variant or contusions to the spleen. Patient is not tender in the left upper quadrant, nor she having pain. A FAST exam by Dr. Oconnor is negative Heterogeneous findings on the spleen likely normal variant but in light of trauma, will refer patient for outpatient follow-up and repeat imaging. Findings have been discussed with patient who expresses understanding. She feels better and is eager for discharge home. She is clinically stable for discharge home. I discussed the physical exam findings, ancillary test results and final diagnoses with the patient. I answered all of the patient's questions. The patient was satisfied with the care received and felt comfortable with the discharge plan and treatment plan. The patient will call their primary care physician within 24 hours to arrange follow-up and will return to the Emergency Department with any new, persistent or worsening symptoms. Heart Score/ECG Review #1 12/16/19 17:34 Twelve-lead EKG was performed and reviewed by me. Normal sinus rhythm, rate 67. Normal axis and intervals. No ST elevations. Isolated T wave inversion in lead III.
[2019-12-16] MEDS ORDERED: LIDOCAINE PATCH REMOVAL MC SCH (22:00)
== END 2019-12-16 16:28 | disposition home or self-care (01) ==
LOC: JER 09:34
PROC: 3E033NZ Introduction of Analgesics, Hypnotics, Sedatives into Peripheral Vein, Percutaneous Approach (ICD-10-PCS; principal; 2019-12-16)
DX: S09.8XXA Other specified injuries of head, initial encounter (principal); M79.651 Pain in right thigh; W10.8XXA Fall (on) (from) other stairs and steps, initial encounter; Y93.89 Activity, other specified; Y92.89 Other specified places as the place of occurrence of the external cause; Y99.8 Other external cause status; I10 Essential (primary) hypertension; D64.9 Anemia, unspecified; Z98.84 Bariatric surgery status
CPT/HCPCS: 36415; 70450-TC; 71260-TC; 72125-TC; 73552-TC-RT-FY; 74177-TC; 80053; 84484; 85025; 86850; 86900; 86901; 93005; 93010; 99283-25; J0131; Q9967